=== PATIENT | male | born 1960 | race American Indian/Alaskan Native ===

== ENCOUNTER 2016-10-04 12:17 | Emergency (ER) | payer BC ==
--- NOTE | 2016-10-04 17:55 | Emergency Department Report ---
ED Fever HPI - General Chief Complaint: Fever Stated Complaint: FEVER X 3 DAYS Time Seen by Provider: 10/04/16 17:55 Source: patient - History of Present Illness Initial Comments: 56-year-old male past medical history hypertension presents with complaint of 2 weeks of malaise, states he has had intermittent fevers. Some sinus congestion. Patient denies any significant cough states he had some minor nasal drainage clear earlier this week. States he had some fevers and some body aches. Denies sore throat denies earache. Denies any rash. 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 States that had some URI symptoms recently. Denies nausea vomiting or abdominal pain. Denies any dysuria or increased urinary frequency. States he had some mild headache for which she took Tylenol. Patient denies any upper or lower extremity numbness tingling or paresthesias. Denies any recent vaccinations. Denies any recent travel. Timing/Duration: other (2 weeks) Fever Severity/Quality: subjective Fever Therapy BENEFITS COORDINATOR: Tylenol Associated Symptoms: headache, other (sinus congestion) ED Review of Systems ROS: Stated complaint: FEVER X 3 DAYS Other details as noted in HPI Constitutional: fever (subjective fever earlier this week), malaise. denies: chills Eyes: denies: eye pain, eye discharge, vision change ENT: congestion (patient does report some sinus congestion and clear drainage). denies: ear pain, throat pain Respiratory: denies: cough, shortness of breath, wheezing Cardiovascular: denies: chest pain, palpitations Endocrine: no symptoms reported Gastrointestinal: denies: abdominal pain, nausea, diarrhea Genitourinary: denies: urgency, dysuria Musculoskeletal: denies: back pain, joint swelling, arthralgia Skin: denies: rash, lesions Neurological: denies: headache, weakness, paresthesias Psychiatric: denies: anxiety, depression Hematological/Lymphatic: denies: easy bleeding, easy bruising ED Past Medical Hx - Past Medical History Previous Medical History?: Yes Hx Hypertension: Yes - Surgical History Past Surgical History?: No - Social History Smoking Status: Never Smoker Substance Use Type: Alcohol, Prescribed - Medications Home Medications: Home Medications Medication Instructions Recorded Confirmed Last Taken Type Naproxen [Naprosyn TAB] 500 mg PO BID PRN #20 tablet 10/04/16 Unknown Rx ED Physical Exam - General Limitations: No Limitations General appearance: alert, in no apparent distress - Head Head exam: Present: atraumatic, normocephalic - Eye Eye exam: Present: normal appearance, PERRL, EOMI - ENT ENT exam: Present: mucous membranes moist - Expanded ENT Exam Expanded Ear exam: Present: normal external inspection Throat exam: Positive: normal inspection - Neck Neck exam: Present: normal inspection, full ROM - Respiratory Respiratory exam: Present: normal lung sounds bilaterally. Absent: respiratory distress - Cardiovascular Cardiovascular Exam: Present: regular rate, normal rhythm. Absent: systolic murmur, diastolic murmur, rubs, gallop - GI/Abdominal GI/Abdominal exam: Present: soft, normal bowel sounds - Rectal Rectal exam: Present: deferred - Extremities Exam Extremities exam: Present: normal inspection - Back Exam Back exam: Present: normal inspection - Neurological Exam Neurological exam: Present: alert, oriented X3 - Psychiatric Psychiatric exam: Present: normal affect, normal mood - Skin Skin exam: Present: warm, dry, intact, normal color. Absent: rash ED Course Vital Signs 10/04/16 10/04/16 12:48 18:12 Temperature 99.2 F 98.9 F Pulse Rate 100 H 90 Respiratory 18 18 Rate Blood Pressure 127/83 Blood Pressure 147/89 [Right] O2 Sat by Pulse 97 99 Oximetry ED Medical Decision Making - Medical Decision Making A/P: Viral syndrome/URI [id number] when necessary 2-vital signs stable before discharge, patient does not have fever 3-patient has no overt signs of infection on physical exam, possibly some sinus congestion but there is no mucopurulent drainage and minimal to no sinus tenderness on exam, patient has no palpable lymphadenopathy in ENT region 4- I advised patient to follow up with primary care doctor or to return to the ED if his symptoms worsen. As patient states that his recently had a URI it is likely that he has developed one as well I advised patient to remain well hydrated and take anti-inflammatories as needed. I advised patient that if he experiences fevers consistently above 100.4 Fahrenheit despite use of anti- inflammatories or Tylenol to return to the ED for reassessment Critical care attestation.: If time is entered above; I have spent that time in minutes in the direct care of this critically ill patient, excluding procedure time. ED Disposition Clinical Impression: Upper respiratory infection Qualifiers: URI type: unspecified viral URI Qualified Code(s): J06.9 - Acute upper respiratory infection, unspecified Disposition: DC- TO HOME OR SELFCARE Is pt being admited?: No Does the pt Need Aspirin: No Condition: Stable Instructions: Upper Respiratory Infection (ED), Viral Syndrome (ED), Cold Symptoms (ED) Prescriptions: Naproxen [Naprosyn TAB] 500 mg PO BID PRN #20 tablet PRN Reason: Fever Referrals: [facility] [Provider Group] - 3-5 Days MONICA HOLDEN MD [Staff Physician] - 3-5 Days Forms: Accompanied Note, Work/School Release Form(ED) Time of Disposition: 19:02
[2016-10-04 18:13] VITALS: BP 147/89
[2016-10-04] MEDS ORDERED: MOTRIN PO ONE (18:30)
== END 2016-10-04 19:35 | disposition home or self-care (01) ==
LOC: ED 12:17
DX: J06.9 Acute upper respiratory infection, unspecified (principal); I10 Essential (primary) hypertension
CPT/HCPCS: 87400; 99282